=== PATIENT | female | born 1965 | race Caucasian/White ===

== ENCOUNTER → 2017-03-16 | Outpatient (CLI) | payer BC ==
--- NOTE | 2017-03-17 10:13 | MM ---
Reason for exam: screening (asymptomatic). Last mammogram was performed 2 years and 7 months ago. History: Family history of breast cancer in mother at age 52. Took hormonal contraceptives for 3 months. Physical Findings: A clinical breast exam by your physician is recommended on an annual basis and results should be correlated with mammographic findings. MG 3D Screening Mammo W/Cad Bilateral CC and MLO view(s) were taken. Prior study comparison: August 15, 2014, left breast MG work up mamm w CAD LT. August 09, 2014, bilateral MG screening mammo w CAD. The breast tissue is heterogeneously dense. This may lower the sensitivity of mammography. No suspicious abnormality in the right breast. There is a new left breast upper outer quadrant foal asymmetry at middle depth measuring 6-7mm. ASSESSMENT: Incomplete: need additional imaging evaluation, BI-RAD 0 RECOMMENDATION: Special view mammogram of the left breast. If lesion persists on supplemental views, image directed ultrasound is recommended. [facility] will attempt to contact patient to return for supplemental views and ultrasound if indicated.
== END | disposition home or self-care (01) ==
LOC: RADMAMWWP 14:46
PROVIDERS: ATTEND Internal Medicine
DX: Z12.31 Encounter for screening mammogram for malignant neoplasm of breast (principal)
CPT/HCPCS: 77063; 77067

== ENCOUNTER → 2017-03-23 | Outpatient (CLI) | payer BC ==
--- NOTE | 2017-03-24 08:17 | MM ---
Reason for exam: additional evaluation requested from abnormal screening. Last mammogram was performed less than 1 month ago. History: Family history of breast cancer in mother at age 52. Took hormonal contraceptives for 3 months. Physical Findings: Nurse did not find any significant physical abnormalities on exam. MG 3D Work Up W/Cad LT Spot compression CC, spot compression MLO, and LM view(s) were taken of the left breast. Prior study comparison: March 16, 2017, bilateral MG 3d screening mammo w/cad. August 15, 2014, left breast MG work up mamm w CAD LT. The breast tissue is heterogeneously dense. This may lower the sensitivity of mammography. The previously seen focal asymmetry resolves on spot views and appears as fibroglandular tissue. These results were verbally communicated with the patient and result sheet given to the patient on 03/23/17. ASSESSMENT: Negative, BI-RAD 1 RECOMMENDATION: Return to routine screening mammogram schedule for both breasts.
== END | disposition home or self-care (01) ==
LOC: RADMAMWWP 14:23
PROVIDERS: ATTEND Internal Medicine
DX: R92.8 Other abnormal and inconclusive findings on diagnostic imaging of breast (principal)
CPT/HCPCS: 77065; G0279

== ENCOUNTER 2018-11-18 17:22 | Emergency (ER) | payer BC ==
[2018-11-18 17:27] VITALS: PULSE 87; RESP 18; TEMP 97.4
--- NOTE | 2018-11-18 17:36 | ED ---
General Adult HPI - General Chief complaint: Back Pain/Injury Stated complaint: back pain Source: patient Mode of arrival: ambulatory Limitations: no limitations - History of Present Illness Initial comments: 53-year-old female witha past medical history presents emergency department for evaluation of left lower back pain. Patient states that on 11/15/18 she was attempting to get her granddaughter situated in a car seat when she twisted she states she felt a spasm in her left lower back. Patient states it was consistent that day, which woke up the next morning she had increasing pain and spasming. Patient denies any midline back pain loss of bowel bladder control urinary retention radiation of the pain down the legs leg weakness or loss of sensation she denies any vaginal numbness. Patient denies any hematuria S she states she does have history of kidney stones however this does not feel similar. Patient denies any nausea vomiting. Patient denies any falls or in jury to head or neck. Patient denies IV drug use, history of cancer, or history of fevers. Patient states she has been able to walk. However walking does increase the pain or any twisting motion especially towards the right side. Patient states at times she can feel spasming in the left lower back muscles. Patient states that ibuprofen and her previous prescription for Flexeril is no longer working. She states that she needs something for symptom medical relief. Remaining review of system negative patient denies chest pain or abdominal pain. Patient is admitted to a nontoxic. Upon arrival but does appear uncomfortable grabbing left-sided lower back - Related Data Previous Rx's Medication Instructions Recorded HYDROcodone/APAP 5-325MG [[place] 1 tab PO Q6HR PRN 3 Days #12 tab 11/18/18 5-325] Methocarbamol [Robaxin] 1,500 mg PO TID 7 Days #63 tab 11/18/18 Allergies Allergy/AdvReac Type Severity Reaction Status Date / Time acetaminophen AdvReac Vomiting Verified 11/18/18 17:27 [From Tylenol-Codeine #3] codeine AdvReac Vomiting Verified 11/18/18 17:27 [From Tylenol-Codeine #3] Review of Systems ROS Statement: Those systems with pertinent positive or pertinent negative responses have been documented in the HPI. ROS Other: All systems not noted in ROS Statement are negative. Past Medical History Past Medical History: Fibromyalgia Additional Past Medical History / Comment(s): kidney stones Past Psychological History: Anxiety Smoking Status: Never smoker Past Alcohol Use History: None Reported Past Drug Use History: None Reported General Exam - General Exam Comments Initial Comments: General: The patient is awake and alert, in no distress, and does not appear acutely ill. Eye: Pupils are equal, round and reactive to light, extra-ocular movements are intact. No nystagmus. There is normal conjunctiva bilaterally. No signs of icterus. Cardiovascular: There is a regular rate and rhythm. No murmur, rub or gallop is appreciated. Respiratory: Lungs are clear to auscultation, respirations are non-labored, breath sounds are equal. No wheezes, stridor, rales, or rhonchi. Gastrointestinal: Soft, non-distended, non-tender abdomen without masses or organomegaly noted. There is no rebound or guarding present. No CVA tenderness. Bowel sounds are unremarkable. No pulsatile masses. Musculoskeletal: Normal inspection cervical thoracic and lumbar spine. There is a lot of paravertebral tenderness on the left lower lumbar spine. There is no midline tenderness to palpation of the cervical thoracic or lumbar spine. No palpable masses. Patient is positive straight leg raise on the left she states increases spasm in the lower back muscles. Full range of motion of the lower extremity's bilaterally as well as strength. Sensation is intact in lower extremities including the saddle region equal comparison bilaterally. Pulses eq ual bilaterally 2+. Ambulates. No myoclonus or fasciculations appreciated. Neurological: A&O x 3. CN II-XII intact grossly, There are no obvious motor or sensory deficits. Coordination appears grossly intact. Speech is normal. Skin: Skin is warm and dry and no rashes or lesions are noted. Psychiatric: Cooperative, appropriate mood & affect, normal judgment. Limitations: no limitations Course Vital Signs 11/18/18 11/18/18 17:24 18:15 Temperature 97.4 F L Pulse Rate 87 Respiratory 18 Rate Blood Pressure 108/40 119/59 O2 Sat by Pulse 98 Oximetry Medical Decision Making - Medical Decision Making 53 year-old female presenting for back spasms x 3 days. Patient states the onset of symptoms occurred when she was making a twisting motion, no heavy lifting. Patient is no midline tenderness palpation of the back. There is no red flags on history taking. Patient has no historical features concerning for cauda equina nor physical examination findings. Strength and sensation intact. No complaints of loss of bowel bladder control or urinary retention. No vaginal numbness. Patient was given various medications in the emergency department she states after the Valium was administered she is significant reduction in symptoms. Patient requesting discharge home. At this time we do feel patient most likely has low back strain given the palpable muscle spasm and mechanism of injury. There is no direct trauma to the back. Patient is provided a prescription for Robaxin as well as [place]. I did discuss the risks involved with taking the medications at the same time it did not advise patient take medication simultaneously. Proper administration risks involved including risk of respiratory suppression and were discussed. Patient verbalized under standing. At this time after discussing casement attending provider Dr. Taylor who is agreeable wt impression and plan, patient was discharge, ambulatory, symptoms reduced appearing well. - Lab Data Lab Results 11/18/18 Range/Units 18:10 Urine Color Yellow Urine Appearance Cloudy H (Clear) Urine pH 5.5 (5.0-8.0) Ur Specific [place] 1.021 (1.001-1.035) Urine Protein Negative (Negative) Urine Glucose (UA) Negative (Negative) Urine Ketones Negative (Negative) Urine Blood Negative (Negative) Urine Nitrite Negative (Negative) Urine Bilirubin Negative (Negative) Urine Urobilinogen <2.0 (<2.0) mg/dL Ur Leukocyte Esterase Negative (Negative) Urine RBC <1 (0-5) /hpf Urine WBC 1 (0-5) /hpf Ur Squamous Epith Cells 3 (0-4) /hpf Urine Bacteria Rare H (None) /hpf Urine Mucus Occasional H (None) /hpf Disposition Clinical Impression: Low back pain, Low back strain Disposition: HOME SELF-CARE Condition: Good Instructions (If sedation given, give patient instructions): Acute Low Back Pain (ED) Additional Instructions: Please use medication as discussed. Please follow-up with family doctor in the next 2 days. Orthopedics as scheduled. Please return to emergency room if the symptoms increase or worsen or for any other concerns. Prescriptions: HYDROcodone/APAP 5-325MG [[place] 5-325] 1 tab PO Q6HR PRN 3 Days #12 tab PRN Reason: Severe Pain Methocarbamol [Robaxin] 1,500 mg PO TID 7 Days #63 tab Is patient prescribed a controlled substance at d/c from ED?: Yes When asked, does pt state using other controlled substances?: No If prescribed controlled substance>3 days was MAPS reviewed?: Prescribed <3 Days If opioid is for acute pain is fill amount 7 days or less?: Yes If Rx opioid, was Start Talking consent form obtained?: Yes Referrals: Jossie Wood MD [Primary Care Provider] - 1-2 days Time of Disposition: 20:28
[2018-11-18 18:15] VITALS: BP 119/59
[2018-11-18] MEDS ORDERED: KETOROLAC 30 MG/ML 1 ML VIAL IM STA (18:16)
[2018-11-18] MEDS ORDERED: MORPHINE SULFATE 2 MG/ML SYRINGE IM STA (18:16)
[2018-11-18] MEDS ORDERED: ONDANSETRON ODT 4 MG TAB PO STA (18:17)
[2018-11-18] MEDS ORDERED: DIAZEPAM 5 MG/ML 2 ML INJ IM ONE (19:24)
[2018-11-18 19:54] LABS: Appearance,Urine Cloudy (Clear); Bacteria,Urine Rare /hpf; Bilirubin,Urine Negative (Negative); Blood,Urine Negative (Negative); Color,Urine Yellow; Glucose,Urine (UA) Negative (Negative); Ketones,Urine Negative (Negative); Leukocyte Esterase,Urine Negative (Negative); Mucus,Urine Occasional /hpf; Nitrite,Urine Negative (Negative); PH, Urine 5.5 (5.0-8.0); Protein,Urine Negative (Negative); RBC,Urine <1 /hpf (0-5); Specific Gravity,Urine 1.021 (1.001-1.035); Squamous Epithelial Cell,Urine 3 /hpf (0-4); Urobilinogen,Urine <2.0 mg/dL (<2.0); WBC,Urine 1 /hpf (0-5)
== END 2018-11-18 20:42 | disposition home or self-care (01) ==
LOC: EC 17:22
DX: S39.012A Strain of muscle, fascia and tendon of lower back, initial encounter (principal); Z88.5 Allergy status to narcotic agent; Z88.6 Allergy status to analgesic agent; X50.1XXA Overexertion from prolonged static or awkward postures, initial encounter; Y93.89 Activity, other specified
CPT/HCPCS: 81001; 99283; 96372 ×3; J3360; J1885; J2270

== ENCOUNTER → 2019-08-07 | Outpatient (CLI) | payer BC ==
--- NOTE | 2019-08-08 07:13 | US ---
EXAMINATION TYPE: US kidneys/renal and bladder DATE OF EXAM: 08/07/2019 COMPARISON: NONE CLINICAL HISTORY: N20.0 Kidney stones. EXAM MEASUREMENTS: Right Kidney: 11.8 x 3.9 x 5.5 cm Left Kidney: 12.1 x 4.2 x 5.1 cm Post Void Residual Volume: 13.21 mL Right Kidney: fluid in renal pelvis even post void Left Kidney: No hydronephrosis or masses seen Bladder: wnl Bilateral Jets seen: Yes Normal Post Void Residual: Yes Incidental note of cyst in spleen measures 3.7 x 3.0 x 3.6 cm. No nephrolithiasis is seen. No masses are identified. The urinary bladder is anechoic. Bilateral u reteral jets are seen. IMPRESSION: Mild right-sided hydronephrosis noted.
== END | disposition home or self-care (01) ==
LOC: RADUSWWP 15:48
PROVIDERS: ATTEND Urology
DX: N13.30 Unspecified hydronephrosis (principal)
CPT/HCPCS: 76770

== ENCOUNTER → 2019-08-08 | Outpatient (CLI) | payer BC ==
--- NOTE | 2019-08-08 11:44 | XR ---
EXAMINATION TYPE: XR KUB DATE OF EXAM: 08/08/2019 Comparison: None Clinical History: 54 year-old female KIDNEY STONES Findings: No masses are clear. No evidence for free intraperitoneal air. No dilated small bowel. Possible subtle 3 mm density right mid abdomen projecting over the lower pole of the right kidney. Impression: Possible subtle 3 mm right lower pole nonobstructive calculus.
[2019-08-08 20:37] LABS: Calcium 24 Hour,Urine 176.7 mg/24Hr (100.0-250.0)
[2019-08-08 20:42] LABS: Uric Acid 24 Hour,Urine 0.6 g/24Hr (0.25-0.75)
[2019-08-08 21:03] LABS: African American GFR (CKD) 114.6 (60.0-200.0); Calcium 8.9 mg/dL (8.7-10.3); Carbon Dioxide 26.7 mmol/L (21.6-31.8); Non-African American GFR(CKD) 98.9 (60.0-200.0); Phosphorus 2.2 mg/dL (2.4-5.1); Uric Acid 4.5 mg/dL (2.9-7.7)
[2019-08-09 12:17] LABS: Creatinine 24 Hour,Urine 1.29 g/24Hr (0.80-1.80)
== END | disposition home or self-care (01) ==
LOC: LABWHC1 11:15
PROVIDERS: ATTEND Urology
DX: N20.0 Calculus of kidney (principal)
CPT/HCPCS: 36415; 74018; 81050; 82310; 82340; 82374; 82435; 82507; 82565; 82570; 83735; 83945; 83970; 84100; 84105; 84133; 84300; 84550; 84560

== ENCOUNTER → 2020-01-30 | Outpatient (CLI) | payer BC ==
--- NOTE | 2020-01-31 11:07 | MM ---
Reason for exam: screening (asymptomatic). Last mammogram was performed 2 years and 10 months ago. History: Family history of breast cancer in mother at age 52. Took hormonal contraceptives for 3 months. Physical Findings: A clinical breast exam by your physician is recommended on an annual basis and results should be correlated with mammographic findings. MG 3D Screening Mammo W/Cad Bilateral CC and MLO view(s) were taken. Prior study comparison: March 23, 2017, left breast MG 3d work up w/cad LT. March 16, 2017, bilateral MG 3d screening mammo w/cad. There are scattered fibroglandular densities. Focal asymmetry outer CC middle position. This finding is changed when compared with previous exams. ASSESSMENT: Incomplete: need additional imaging evaluation, BI-RAD 0 RECOMMENDATION: Special view mammogram of the right breast. If lesion persists on supplemental views, image directed ultrasound is recommended. [facility] will attempt to contact patient to return for supplemental views and ultrasound if indicated.
== END | disposition home or self-care (01) ==
LOC: RADMAMWWP 15:56
PROVIDERS: ATTEND Internal Medicine
DX: Z12.31 Encounter for screening mammogram for malignant neoplasm of breast (principal); Z80.3 Family history of malignant neoplasm of breast
CPT/HCPCS: 77063; 77067

== ENCOUNTER → 2020-02-06 | Outpatient (CLI) | payer BC ==
--- NOTE | 2020-02-06 10:23 | MM ---
Reason for exam: additional evaluation requested from abnormal screening. Last mammogram was performed less than 1 month ago. History: Family history of breast cancer in mother at age 52 and breast cancer in maternal aunt at age 35. Taking other hormone for 2 months. Physical Findings: Nurse did not find any significant physical abnormalities on exam. MG 3D Work Up W/Cad RT Spot compression CC and LM view(s) were taken of the right breast. Prior study comparison: January 30, 2020, bilateral MG 3d screening mammo w/cad. March 23, 2017, left breast MG 3d work up w/cad LT. There is no discrete abnormality including area of concern. These results were verbally communicated with the patient and result sheet given to the patient on 02/06/20. ASSESSMENT: Negative, BI-RAD 1 RECOMMENDATION: Return to routine screening mammogram schedule for both breasts.
== END | disposition home or self-care (01) ==
LOC: RADMAMWWP 09:33
PROVIDERS: ATTEND Internal Medicine
DX: R92.8 Other abnormal and inconclusive findings on diagnostic imaging of breast (principal)
CPT/HCPCS: 77061; 77065

== ENCOUNTER → 2021-12-24 | Outpatient (CLI) | payer BC ==
--- NOTE | 2021-12-28 11:13 | MM ---
Reason for Exam: Additional evaluation requested from abnormal screening. Last screening mammogram was performed less than 1 month ago. Patient History: Menarche at age 19. First Full-Term at age 27. Hysterectomy at age 30. Postmenopausal. Currently using Estrogen and Progesterone, for 2 months. Maternal aunt had breast cancer, age 35. Mother had breast cancer, age 52. Risk Values: Abi 5 year model risk: 2.1%. NCI Lifetime model risk: 14.2%. Tissue Density: Right: The breast tissue is heterogeneously dense. This may lower the sensitivity of mammography. Findings: Analyzed By CAD. No persistent suspicious distortion is evident. Parenchymal pattern disperses on compression. No suspicious modality medial lateral view. Overall Assessment: Probably benign, BI-RAD 3 Management: Diagnostic Mammogram of the right breast in 6 months. A clinical breast exam by your physician is recommended on an annual basis and results should be correlated with mammographic findings. This exam should not preclude additional follow-up of suspicious palpable abnormalities. Results were given to the patient verbally at the time of exam. Electronically signed and approved by: Alexis Laguerre D.O. Radiologis
== END | disposition home or self-care (01) ==
LOC: RADMAMWWP 08:20
PROVIDERS: ATTEND Internal Medicine
DX: R92.8 Other abnormal and inconclusive findings on diagnostic imaging of breast (principal); Z78.0 Asymptomatic menopausal state; Z80.3 Family history of malignant neoplasm of breast
CPT/HCPCS: 77061; 77065

== ENCOUNTER → 2022-10-08 | Outpatient (CLI) | payer BC ==
[2022-10-09 02:06] LABS: Follicle Stimulating Hormone 54.5 mIU/mL; Luteinizing Hormone 41.3 mIU/mL
== END | disposition home or self-care (01) ==
LOC: LABWHC1 12:57
PROVIDERS: ATTEND Internal Medicine
DX: N95.1 Menopausal and female climacteric states (principal)
CPT/HCPCS: 36415; 82040; 83001; 83002; 84144; 84146; 84270; 84403; 84443

== ENCOUNTER → 2023-01-27 | Outpatient (CLI) | payer BC ==
--- NOTE | 2023-01-28 09:42 | MM ---
Reason for Exam: Screening (asymptomatic). Last mammogram was performed 1 year(s) and 1 month(s) ago. Patient History: Menarche at age 19. First Full-Term at age 27. Hysterectomy at age 30. Postmenopausal. Currently using Estrogen and Progesterone, for 2 months. Maternal aunt had breast cancer, age 35. Mother had breast cancer, age 52. Risk Values: Abi 5 year model risk: 2.2%. NCI Lifetime model risk: 14.0%. Prior Study Comparison: 12/17/2021 Bilateral MG 3D screening mammo w/cad, [facility]. 12/24/2021 Right MG 3D work up w/cad RT, [facility]. 06/18/2022 Right MG 3D diag mammo w/cad RT, [facility]. Tissue Density: There are scattered fibroglandular densities. Findings: Analyzed By CAD. There is no suspicious group of microcalcifications or new suspicious mass. Overall Assessment: Negative, BI-RAD 1 Management: Screening Mammogram of both breasts in [address] [facility] will attempt to contact patient to return for supplemental views and ultrasound if indicated. Patient should continue monthly self-breast exams. A clinical breast exam by your physician is recommended on an annual basis. This exam should not preclude additional follow-up of suspicious palpable abnormalities. Note on Abi scores and lifetime risk: 1. A Abi score greater than 3% is considered moderate risk. If this is the case, consider specialist referral to assess eligibility for a risk reducing agent. 2. If overall lifetime risk for the development of breast cancer is 20% or higher, the patient may qualify for future screening with alternating mammogram and breast MRI. Electronically signed and approved by: Bradley Julien DO
== END | disposition home or self-care (01) ==
LOC: RADMAMWWP 16:25
PROVIDERS: ATTEND Obstetrics & Gynecology Obstetrics
DX: Z12.31 Encounter for screening mammogram for malignant neoplasm of breast (principal); Z80.3 Family history of malignant neoplasm of breast; Z78.0 Asymptomatic menopausal state
CPT/HCPCS: 77063; 77067

== ENCOUNTER → 2024-07-31 | Outpatient (CLI) | payer BC ==
--- NOTE | 2024-07-31 13:54 | MM ---
Reason for Exam: Screening (asymptomatic). Last mammogram was performed 1 year(s) and 6 month(s) ago. Patient History: Menarche at age 19. First Full-Term at age 27. Hysterectomy at age 30. Postmenopausal. Currently using Estrogen and Progesterone, for 2 months. Maternal aunt had breast cancer, age 35. Mother had breast cancer, age 52. Risk Values: Abi 5 year model risk: 2.4%. NCI Lifetime model risk: 13.4%. Prior Study Comparison: 12/24/2021 Right MG 3D work up w/cad RT, [facility]. 06/18/2022 Right MG 3D diag mammo w/cad RT, [facility]. 01/27/2023 Bilateral MG 3D screening mammo w/cad, [facility]. Tissue Density: There are scattered areas of fibroglandular density. Findings: Analyzed By CAD. Unchanged asymmetric density superior left MLO view. There is no suspicious group of microcalcifications or new suspicious mass in either breast. Overall Assessment: Benign, BI-RAD 2 Management: Screening Mammogram of both breasts in 1 year. Patient should continue monthly self-breast exams. A clinical breast exam by your physician is recommended on an annual basis. This exam should not preclude additional follow-up of suspicious palpable abnormalities. Note on Abi scores and lifetime risk: 1. A Abi score greater than 3% is considered moderate risk. If this is the case, consider specialist referral to assess eligibility for a risk reducing agent. 2. If overall lifetime risk for the development of breast cancer is 20% or higher, the patient may qualify for future screening with alternating mammogram and breast MRI. [facility], , 07/31/2024 1:51 PM. Electronically signed and approved by: Yoly Mehta M.D. Radiologist
== END | disposition home or self-care (01) ==
LOC: RADMAMWWP 11:40
PROVIDERS: ATTEND Internal Medicine
DX: Z12.31 Encounter for screening mammogram for malignant neoplasm of breast (principal); R92.323 Mammographic fibroglandular density, bilateral breasts; Z78.0 Asymptomatic menopausal state; Z80.3 Family history of malignant neoplasm of breast
CPT/HCPCS: 77063; 77067

== ENCOUNTER → 2024-08-21 | Outpatient (CLI) | payer BC ==
--- NOTE | 2024-08-21 09:09 | US ---
EXAMINATION TYPE: US carotid duplex BILAT DATE OF EXAM: 08/21/2024 COMPARISON: NONE CLINICAL INDICATION: Female, 59 years old with history of I65.23 CAROTID STENOSIS, BILATERAL; Baselin e check Additional History: .... TECHNIQUE: Grayscale, color Doppler and spectral Doppler evaluation of the bilateral carotid systems and vertebral arteries. Indirect Doppler criteria was utilized. FINDINGS: EXAM MEASUREMENTS: RIGHT: Peak Systolic Velocity (PSV) cm/sec ----- Right CCA: 77.2 ----- Right ICA: 68.6 ----- Right ECA: 105.6 ICA/CCA ratio: 0.9 RIGHT: End Diastole cm/sec ----- Right CCA: 27.7 ----- Right ICA: 25.0 ----- Right ECA: 30.5 LEFT: Peak Systolic Velocity (PSV) cm/sec ----- Left CCA: 68.6 ----- Left ICA: 78.3 ----- Left ECA: 84.4 ICA/CCA ratio: 1.1 LEFT: End Diastole cm/sec ----- Left CCA: 24.8 ----- Left ICA: 34.9 ----- Left ECA: 22.8 VERTEBRALS (direction of flow): Right Vertebral: Antegrade Left Vertebral: Antegrade Rhythm: Normal SURGICAL PATHOLOGIST NOTES: Color Doppler imaging shows patency with blood flow throughout the carotid artery. Spectral waveforms are within normal limits. IMPRESSION: Right: No hemodynamically significant stenosis. Left: No hemodynamically significant stenosis. Criteria for Assigning % of Stenosis / Diameter reduction (Estimation based on the indirect measurements of the internal carotid artery velocities (ICA PSV). 1. Normal (no stenosis)=ICA PSV < 180 cm/s: ratio < 2.0: ICA EDV<40 cm/s. 2. Less than 50% stenosis=ICA PSV < 180 cm/s: ratio < 2.0: ICA EDV<40 cm/s. 3. 50 to 69% stenosis=ICA PSV of 180 to 230 cm/s: ration 2.0 ? 4.0: ICA EDV 40-100 cm/s. PSV 125-180 cm/sec and ICA/CCA PSV Ratio ? 2.0 is also consistent with 50-69% stenosis 4. Greater than 70% stenosis to near occlusion= ICA PSV > 230 cm/s: ratio > 4.0: ICA EDV > 100 cm/s. 5. Near occlusion= ICA PSV velocities may be low or undetectable: variable ratio and ICA EDV. 6. Total occlusion=unable to detect flow. [facility], , 08/21/2024 9:07 AM
== END | disposition home or self-care (01) ==
LOC: RADUSWWP 08:18
PROVIDERS: ATTEND Internal Medicine
DX: I65.23 Occlusion and stenosis of bilateral carotid arteries (principal)
CPT/HCPCS: 93880